=== PATIENT | male | born 1965 | race Hispanic/Latino ===

== ENCOUNTER 2022-02-19 07:22 | Inpatient (IN) | payer MEDICARE ==
[2022-02-19] MEDS ORDERED: ASPIRIN EC 325 MG TAB PO ONE (07:50)
[2022-02-19 08:18] LABS: Basophils # (Auto) 0.1 K/mm3 (0.0-0.1); Basophils % (Auto) 1.3 % (0.0-1.8); Eosinophils # (Auto) 0.2 K/mm3 (0.0-0.4); Eosinophils % (Auto) 4.1 % (0.0-4.3); Hematocrit 33.6 % (35.5-45.6); Hemoglobin 10.9 gm/dl (11.8-15.2); Lymphocytes # (Auto) 1.9 K/mm3 (1.2-5.4); Mean Corpuscular HGB Conc 33 % (32-34); Mean Corpuscular Volume 78 fl (84-94); Monocytes # (Auto) 0.6 K/mm3 (0.0-0.8); Monocytes % (Auto) 11.2 % (0.0-7.3); Platelet Count 196 K/mm3 (140-440); Red Blood Count 4.28 M/mm3 (3.65-5.03); Red Cell Distribution Width 17.6 % (13.2-15.2)
[2022-02-19 08:30] LABS: Calcium 8.6 mg/dL (8.4-10.2)
[2022-02-19] MEDS: SODIUM CHLORIDE 0.9% 500 ML 500 ML IV SCH ×2 (08:45→10:14)
[2022-02-19 08:51] LABS: INR 0.87 (0.87-1.13)
[2022-02-19 08:53] LABS: Partial Thromboplastin Time 25.9 Sec. (24.2-36.6)
[2022-02-19] MEDS: MIDAZOLAM 2 MG/2 ML INJ ONE ×4 (10:10→10:39)
[2022-02-19] MEDS: fentaNYL 100 MCG/2 ML INJ ONE ×2 (10:10→10:23)
[2022-02-19] MEDS: LIDOCAINE (2%) 20 MG/1 ML VIAL 20 ML MDV INFILTRATI ONE ×2 (10:11→10:27)
[2022-02-19] MEDS: VERAPAMIL 5 MG/2 ML INJ ONE ×2 (10:13→10:29)
[2022-02-19] MEDS: HEPARIN 10,000 UNITS/10 ML VIAL ONE ×3 (10:13→10:47)
[2022-02-19] MEDS: NITROGLYCERIN SYRINGE 3 ML ONE ×2 (10:14→10:29)
[2022-02-19] MEDS: HEPARIN/NS 5000 UNIT/500ML 1,000 ML IR ONE ×2 (10:14→10:30)
[2022-02-19] MEDS ORDERED: HEPARIN/ 0.45% NACL DRIP 25,000 UNIT/500 ML BAG ONE (10:47)
[2022-02-19] MEDS ORDERED: MIDAZOLAM 2 MG/2 ML INJ ONE (11:01)
[2022-02-19] MEDS ORDERED: MIDAZOLAM 2 MG/2 ML INJ IV ONE (11:07)
[2022-02-19] MEDS ORDERED: fentaNYL 100 MCG/2 ML INJ IV ONE (11:08)
--- NOTE | 2022-02-19 11:27 | Electrocardiograph Report ---
[facility] Test Date: 2022-02-19 Test Time: 08:36:13 Pat Name: SAMUEL PFEIFFER Department: Room: Gender: M Flight Follower: MARY : 1965 Requested By: CIRILO BAEZ Order Number: [id number] Reading MD: Cirilo Baez Measurements Intervals Stopover Rate: 76 P: 27 WV: 236 QRS: 18 QRSD: 100 T: 36 QT: 400 QTc: 452 Interpretive Statements Sinus rhythm Prolonged WV interval Low voltage, precordial leads No previous ECG available for comparison Electronically Signed On 02-19-2022 11:27:29 EDT by Cirilo Baez
--- NOTE | 2022-02-19 11:49 | Cardiac Catherization Report ---
DATE OF PROCEDURE: 02/19/2022 REFERRING PHYSICIAN: Cirilo Baez MD. INDICATIONS FOR PROCEDURE: The patient is a very pleasant 56-year-old gentleman with multiple risk factors including diabetes, hypertension, obstructive sleep apnea, strong family history of premature heart disease, chronic kidney disease, presents here for cardiac cath due to dyspnea on exertion, anginal equivalent, abnormal stress test, refractory symptoms to medications. He had a Nephrology clearance. Risks, benefits and alternatives discussed at length prior to obtaining informed consent. PROCEDURE IN DETAIL: The patient was brought to pharmacy laboratory technician in postabsorptive state, prepped and draped in sterile fashion. Mukesh's test in right hand is normal. A 2 mL of 2% lidocaine used to anesthetize the right wrist. A standard 6-Yakut hydrophilic sheath used to cannulate the right radial artery via modified Seldinger technique. All exchanges performed to exchange a J-tip guidewire. JL3.5 catheter used as left main. No dampening or ventricularization. Cineangiography performed in all projections. JR4 catheter used to cross the aortic valve under fluoroscopic guidance. Left ventriculography performed in 30-degree ROD and 30-degree KAY projections via hand injections, catheter flushed. Manual pullback performed with continuous pressure monitoring. Catheter was right coronary. No dampening or ventricularization. Cineangiography performed in all projections. Next, catheter removed from the body of wire, sheath removed. Manual pressure used to achieve hemostasis. DATA: Aortic pressure is 130/90. LV pressure is 130. LVP of 20 mmHg. Left ventriculography reveals normal systolic performance, estimated ejection fraction 55-60%. No evidence of aortic stenosis. CORONARY ANATOMY: This is a right dominant system. Right coronary is a moderate sized vessel, courses AV groove. There is a 30-40% stenosis proximally, but no obstructive disease noted. Left ventriculography reveals normal systolic performance, estimated ejection fraction 55-60%. No evidence of aortic stenosis. The patient remained in normal sinus rhythm throughout the procedure. Left main is medium size. There is a lucency in the mid left main. Multiple images were performed. A mid to proximal left main with a 95% stenosis. Dampening is noted. No dye hangup or dissection. The left circumflex is a small vessel, no significant disease. LAD is a moderate sized vessel, courses anterior interventricular groove, wraps around the apex. No significant disease in the LAD. Given severe left main disease, I was uncomfortable performing intravascular ultrasound as I did not want to complicate matters, but the patient did have dampening and significant disease in multiple orthogonal views on imaging. I directly supervised the administration of moderate sedation with fentanyl and Versed from 10:20 a.m. to 10:45 a.m. No immediate complications. Severe epicardial coronary artery disease with a 95% mid/proximal left main disease, nonobstructive right coronary artery disease, preserved LV function. No evidence of aortic stenosis. Normal LVEDP. At this point, the patient is clinically stable, chest pain free. Started on IV heparin. Discussed with Dr. Cameron at [facility]. The patient will be transferred in stable condition for coronary bypass surgery and complete revascularization. Procedure explained to the patient at length. All questions were addressed. TID: [id number] RECEIPT: [id number] PEDRO/ОЛЕГ
[2022-02-19] MEDS ORDERED: HYDROcodone/ACETAMINOPHEN 5-325 MG TAB PO PRN (12:18)
[2022-02-19] MEDS ORDERED: traMADol 50 MG TAB PO PRN (12:18)
[2022-02-19] MEDS ORDERED: ONDANSETRON 4 MG/2 ML INJ IV PRN (14:31)
[2022-02-19] MEDS ORDERED: ACETAMINOPHEN 325 MG TAB PO PRN (14:31)
[2022-02-19] MEDS ORDERED: oxyCODONE /ACETAMINOPHEN 5-325MG TAB PO PRN (14:31)
[2022-02-19] MEDS ORDERED: MORPHINE 2 MG/1 ML INJ IV PRN (14:31)
[2022-02-19] MEDS ORDERED: METOCLOPRAMIDE 10 MG/2 ML INJ IV PRN (14:31)
[2022-02-19] MEDS ORDERED: SODIUM CHLORIDE 0.9% 1000 ML 1,000 ML IV SCH (14:45)
[2022-02-19] MEDS: FAMOTIDINE 20 MG/2 ML INJ IV SCH ×2 (16:00→21:53)
[2022-02-19] MEDS ORDERED: HEPARIN 10,000 UNITS/10 ML VIAL IV PRN (16:57)
[2022-02-19] MEDS ORDERED: HEPARIN/ 0.45% NACL DRIP 25,000 UNIT/500 ML BAG IV SCH (17:00)
--- NOTE | 2022-02-19 17:01 | Short Stay Summary ---
Short Stay Documentation Date of service: 02/19/22 - History H&P: obtained from office - Allergies and Medications Current Medications: Allergies Penicillins Allergy (Verified 02/19/22 07:49) Anaphylaxis Home Medications Medication Instructions Recorded Confirmed Last Taken Type Albuterol Sulfate [Proair 90 mcg IH BID PRN 02/19/22 02/19/22 2 Weeks Ago History Respiclick] ~02/05/22 Aspirin [Vazalore] 81 mg PO DAILY 02/19/22 02/19/22 02/18/22 History Colesevelam [Welchol] 625 tab PO BID 02/19/22 02/19/22 02/18/22 History Colesevelam [Welchol] 625 tab PO BID 02/19/22 02/19/22 02/18/22 History Cyclobenzaprine [Flexeril] 10 mg PO TID PRN 02/19/22 02/19/22 02/18/22 History Gabapentin [Neurontin] 400 mg PO Q8HR 02/19/22 02/19/22 02/18/22 History Mirtazapine [Remeron 45mg TAB] 45 mg PO QHS 02/19/22 02/19/22 02/18/22 History Pravastatin [Pravachol] 40 mg PO QHS 02/19/22 02/19/22 02/18/22 History Sucralfate [Carafate] 1 gm PO Q6HR 02/19/22 02/19/22 02/18/22 History Vortioxetine Hydrobromide 20 mg PO DAILY 02/19/22 02/19/22 02/18/22 History [Trintellix] metFORMIN XR [Glucophage XR] 500 mg PO QDAY 02/19/22 02/19/22 02/18/22 History propranoloL [Inderal] 40 mg PO BID 02/19/22 02/19/22 02/18/22 History Active Medications Acetaminophen (Acetaminophen 325 Mg Tab) 650 mg PO Q4H PRN PRN Reason: Pain MILD(1-3)/Fever >100.5/ALONSO Hydrocodone Bitart/Acetaminophen (Hydrocodone/Acetaminophen 5-325 Mg Tab) 1 each PO Q4H PRN PRN Reason: Pain, Moderate (4-6) Last Admin: 02/19/22 12:28 Dose: 1 each Aspirin (Aspirin 81 Mg Tab Chew) 81 mg PO QDAY MONO Famotidine (Famotidine 20 Mg/2 Ml Inj) 20 mg IV BID MONO Heparin Sodium (Porcine) (Heparin 10,000 Units/10 Ml Vial) 6,300 unit 40 unit/kg (6300 unit) IV Q6H PRN PRN Reason: Anti-Xa Assay < 0.1 units/ml Sodium Chloride (Nacl 0.9% 500 Ml) 500 mls @ 50 mls/hr IV DIRECT MONO Stop: 02/19/22 17:59 Last Admin: 02/19/22 10:14 Dose: 50 mls/hr Sodium Chloride (Nacl 0.9% 1000 Ml) 1,000 mls @ 75 mls/hr IV DIRECT MONO Last Admin: 02/19/22 16:00 Dose: 75 mls/hr Heparin Sodium/Sodium Chloride (Heparin/ 0.45% Nacl-25,000 Unit/500 Ml) 25,000 unit in 500 mls @ 46.947 mls/hr IV TITRATE MONO; Protocol Isosorbide Mononitrate (Isosorbide Mononitrate Er 30 Mg Tab) 30 mg PO QDAY [facility] Metoclopramide HCl (Metoclopramide 10 Mg/2 Ml Inj) 10 mg IV Q6H PRN PRN Reason: Nausea And Vomiting Morphine Sulfate (Morphine 2 Mg/1 Ml Inj) 2 mg IV Q4H PRN PRN Reason: Pain, Moderate (4-6) Ondansetron HCl (Ondansetron 4 Mg/2 Ml Inj) 4 mg IV Q3H PRN PRN Reason: Nausea And Vomiting Oxycodone/Acetaminophen (Oxycodone /Acetaminophen 5-325mg Tab) 1 tab PO Q6H PRN PRN Reason: Pain, Moderate (4-6) Pravastatin Sodium (Pravastatin 40 Mg Tab) 40 mg PO QHS MONO Propranolol HCl (Propranolol 40 Mg Tab) 40 mg PO Q12HR MONO Sodium Chloride (Sodium Chloride 0.9% 10 Ml Flush Syringe) 10 ml IV BID [facility] Sodium Chloride (Sodium Chloride 0.9% 10 Ml Flush Syringe) 10 ml IV PRN PRN PRN Reason: LINE FLUSH Tramadol HCl (Tramadol 50 Mg Tab) 50 mg PO Q4H PRN PRN Reason: Pain, Mild (1-3) - Brief post op/procedure progress note Date of procedure: 02/19/22 Pre-op diagnosis: Angina, abnormal stress test Post-op diagnosis: other (Severe CAD in left main and RCA) Anesthesia: local Estimated blood loss: minimal - Hospital course Hospital course: Patient presents today for cardiac cath patient found to have severe epicardial coronary artery disease in left main and nonobstructive right coronary artery disease with preserved LV function. Patient clinically stable and started on IV heparin. Patient to be transferred to [place] for CABG and revascularization. Case was discussed with Dr. Cameron at [place] [facility] - Disposition Condition at discharge: Good - Discharge Diagnoses (1) CAD (coronary artery disease) Status: Acute (2) Diabetes Status: Acute (3) ANTHONY (obstructive sleep apnea) Status: Acute (4) Hypertension Status: Acute Short Stay Discharge Plan Activity: advance as tolerated Diet: low fat, low cholesterol, low salt Follow up with: MYRTLE ALVARADO MD [Primary Care Provider] - 7 Days
[2022-02-19 18:04] LABS: Hematocrit 34.4 % (35.5-45.6)
[2022-02-19 18:14] LABS: INR 0.95 (0.87-1.13)
[2022-02-19 18:15] LABS: Partial Thromboplastin Time 39.2 Sec. (24.2-36.6)
[2022-02-19] MEDS ORDERED: PROPRANOLOL 40 MG TAB PO SCH (22:00)
[2022-02-19] MEDS ORDERED: PRAVASTATIN 40 MG TAB PO SCH (22:00)
[2022-02-19 23:54] VITALS: BP 132/64
[2022-02-20] MEDS ORDERED: ASPIRIN 81 MG TAB CHEW PO SCH (10:00)
== END 2022-02-20 00:45 | disposition short-term general hospital (02) | DRG 287 ==
LOC: CATHLABREC 07:22 → 4A 14:31
PROVIDERS: ADMIT Internal Medicine; ATTEND Internal Medicine
PROC: 4A023N7 Measurement of Cardiac Sampling and Pressure, Left Heart, Percutaneous Approach (ICD-10-PCS; principal; 2022-02-19)
PROC: B2111ZZ Fluoroscopy of Multiple Coronary Arteries using Low Osmolar Contrast (ICD-10-PCS; 2022-02-19)
PROC: B2151ZZ Fluoroscopy of Left Heart using Low Osmolar Contrast (ICD-10-PCS; 2022-02-19)
DX: I25.10 Atherosclerotic heart disease of native coronary artery without angina pectoris (principal); Z68.41 Body mass index [BMI] 40.0-44.9, adult; R94.39 Abnormal result of other cardiovascular function study; R06.00 Dyspnea, unspecified; N18.9 Chronic kidney disease, unspecified; E11.22 Type 2 diabetes mellitus with diabetic chronic kidney disease; G47.33 Obstructive sleep apnea (adult) (pediatric); E66.9 Obesity, unspecified; Z82.49 Family history of ischemic heart disease and other diseases of the circulatory system
CPT/HCPCS: 36415; 80048; 82962; 85014; 85018; 85025; 85049; 85520; 85610; 85730; 93005; 93458; G0378; J1815; J3490; Q0162; C1894; J1644; J2250; J3010; J7030; J7040; Q9967